=== PATIENT | male | born 1985 | race Caucasian/White ===

== ENCOUNTER 2017-04-30 03:11 | Emergency (ER) | payer OTHER, SELFPAY ==
[2017-04-30] MEDS ORDERED: HYDROcodone/Acetaminophen 10/325 mg Tablet ONE (04:21)
[2017-04-30] MEDS ORDERED: Cephalexin 500 MG CAP ONE (04:22)
[2017-04-30] MEDS ORDERED: Naproxen 500 MG TAB ONE (04:22)
[2017-04-30] MEDS ORDERED: Sterile Water Irrigation 250 ML BOT ONE (16:14)
[2017-04-30] MEDS ORDERED: Sodium Chloride Irrig Solution 250 ML BOT ONE (16:14)
== END 2017-04-30 04:34 | disposition home or self-care (01) ==
LOC: MADERS 03:11
DX: S91.311A Laceration without foreign body, right foot, initial encounter (principal); W26.8XXA Contact with other sharp object(s), not elsewhere classified, initial encounter; M19.90 Unspecified osteoarthritis, unspecified site; F17.210 Nicotine dependence, cigarettes, uncomplicated
CPT/HCPCS: 12002; J2001

== ENCOUNTER 2019-05-16 13:40 | Emergency (ER) | payer SELFPAY | END 2019-05-16 14:38 | disposition home or self-care (01) | LOC: MADERS 13:40 | DX: M54.5 Low back pain (principal); F17.220 Nicotine dependence, chewing tobacco, uncomplicated; M19.90 Unspecified osteoarthritis, unspecified site | CPT/HCPCS: 99283 ==

== ENCOUNTER 2019-05-21 13:49 | Emergency (ER) | payer SELFPAY | END 2019-05-21 14:30 | disposition home or self-care (01) | LOC: MADERS 13:49 | DX: M54.5 Low back pain (principal); M19.90 Unspecified osteoarthritis, unspecified site; F17.220 Nicotine dependence, chewing tobacco, uncomplicated; Z79.899 Other long term (current) drug therapy | CPT/HCPCS: 99281 ==

== ENCOUNTER 2021-05-08 18:55 | Emergency (ER) | payer SELFPAY ==
[2021-05-08] MEDS ORDERED: Acetaminophen 500 MG TAB ONE (19:21)
[2021-05-08 20:28] LABS: ALT (SGPT) 26 U/L (8-55); AST (SGOT) 16 U/L (5-34); Albumin 4.1 g/dL (3.5-5.0); Alkaline Phosphatase 98 U/L (40-110); Anion Gap 17 mmol/L (10-20); BUN (Urea Nitrogen) 11 mg/dL (8.9-20.6); Bilirubin, Total 0.6 mg/dL (0.2-1.2); Calc. Creatinine Clearance 0 mL/min (70-130); Calcium 9.7 mg/dL (7.8-10.44); Carbon Dioxide 19 mmol/L (22-29); Chloride 103 mmol/L (98-107); Glucose 104 mg/dL (70-105); Potassium 3.4 mmol/L (3.5-5.1); Protein, Total 7.1 g/dL (6.0-8.3); Sodium 136 mmol/L (136-145)
[2021-05-08 20:29] LABS: Alcohol Less than 10 mg/dL (Less than 10); CK (CPK) 72 U/L (30-200); Salicylate Less than 8.0 mg/dL (15.0-30.0)
[2021-05-08 20:37] LABS: Band 5 % (5-11); Eosinophils 1 % (0-10); Hemoglobin 13.5 g/dL (14.0-18.0); Lymphocytes 6 % (21-51); MDiff Complete? YES; Mean Corpuscular HGB CONC 32.3 g/dL (32.0-36.0); Mean Corpuscular Volume 89.7 fL (78.0-98.0); Mean Platelet Volume 7.5 fL (7.4-10.4); Monocytes 17 % (0-10); Neutrophil 71 % (42-75); Platelet Count 295 thou/uL (130-400); RBC Distribution Width 12.8 % (11.5-14.5); RBC Morphology Normal; Red Blood Cell (RBC) Count 4.64 mill/uL (4.70-6.10); White Blood Cell (WBC) Count 7.6 thou/uL (4.8-10.8)
[2021-05-08 23:45] LABS: Bilirubin Negative (Negative); Blood, Urine Negative (Negative); Clarity Clear (Clear); Glucose, Urine (Dipstick) Negative (Negative); Ketone, Urine 40 mg/dL (Negative); Leukocyte Negative (Negative); Nitrite Negative (Negative); Protein, Urine (Dipstick) Trace mg/dL (Neg-Trace); Specific Gravity, Urine 1.015 (1.005-1.030); Urobilinogen 0.2 mg/dL (Less than 2); pH, Urine 8.5 (5.0-9.0)
[2021-05-08 23:52] LABS: Cocaine Metabolite Screen Not Detected (NotDetected); Phencyclidine (PCP) Not Detected (NotDetected); THC/Cannabinoid Screen Detected (NotDetected)
[2021-05-08 23:53] LABS: Amphetamine Detected (NotDetected); Barbiturates Screen Not Detected (NotDetected); Benzodiazepine Screen Not Detected (NotDetected); Medtox Control Line Valid? VALID (VALID); Methadone Not Detected (NotDetected); Methamphetamine Detected (NotDetected); Opiate Screen Detected (NotDetected); Oxycodone Screen Not Detected (NotDetected); Tricyclic Screen Not Detected (NotDetected)
[2021-05-10 13:40] LABS: SARS-CoV-2 PCR by NAA DETECTED (NotDetected)
== END 2021-05-09 00:20 | disposition home or self-care (01) ==
LOC: MADERS 18:55
DX: U07.1 COVID-19 (principal); M62.830 Muscle spasm of back; F15.10 Other stimulant abuse, uncomplicated; E11.9 Type 2 diabetes mellitus without complications; F17.210 Nicotine dependence, cigarettes, uncomplicated; F17.220 Nicotine dependence, chewing tobacco, uncomplicated
CPT/HCPCS: 70450; 71045; 80053; 80306; 80307; 81003; 82550; 83605; 84484; 85025; 87040; 87086; U0003; U0005

== ENCOUNTER 2022-01-12 18:36 | Emergency (ER) | payer OTHER, SELFPAY ==
[2022-01-12] MEDS ORDERED: Ketorolac Tromethamine 30 MG/ML VIAL ONE (19:42)
== END 2022-01-12 20:11 | disposition home or self-care (01) ==
LOC: MADERS 18:36
DX: S63.501A Unspecified sprain of right wrist, initial encounter (principal); E11.9 Type 2 diabetes mellitus without complications; F17.210 Nicotine dependence, cigarettes, uncomplicated; F17.220 Nicotine dependence, chewing tobacco, uncomplicated; X50.1XXA Overexertion from prolonged static or awkward postures, initial encounter; Y93.67 Activity, basketball
CPT/HCPCS: 96372; J1885